=== PATIENT | male | born 1960 | race Hispanic/Latino ===

== ENCOUNTER 2024-06-28 14:21 | Emergency (ER) | payer MEDICARE, OTHER ==
[2024-06-28] MEDS ORDERED: MORPHINE 4 MG/ML SYR ONE (14:35)
[2024-06-28] MEDS ORDERED: ONDANSETRON 4 MG (ODT) TAB ONE (14:35)
--- NOTE | 2024-06-28 15:17 | RAD REPORT ---
EXAMINATION: Head C Spine Mpr Wo Con CLINICAL INDICATION: Male, 64 years old. TRAUMA TECHNIQUE: Axial CT images from the skull base to the vertex without intravenous contrast. Axial CT i mages through the cervical spine were obtained without intravenous contrast. Sagittal and coronal reformatted images were created from the data set. Coronal and sagittal reformatted images were creat ed from the data set. One or more of the following dose reduction techniques were used: Automated exposure control, adjustment of the mA and/or kV according to patient size, and/or iterative reconstr uction. Unless otherwise specified, incidental findings do not require dedicated imaging follow-up. [id number]. COMPARISON: 07/30/2015 FINDINGS: Head: INTRACRANIAL: No acute intracranial hemorrhage. No hydrocephalus. No mass effect or midline shift. Mi ld chronic small vessel ischemic changes. VASCULATURE: No visualized abnormalities in the arteries or dural venous sinuses. SCALP/SKULL: No calvarial fracture identified. No acute soft tissue abnormality. SINUSES: The visualized paranasal sinuses are mostly clear. No significant mastoid fluid. Cervical spine: ALIGNMENT: The cervical spine has normal alignment without scoliosis or spondylolisthesis. BONE: Vertebral body heights are maintained. No aggressive osseous lesions. DEGENERATIVE: Multilevel cervical spondylosis with evidence of bilateral neural foraminal narrowing. No high grade central spinal stenosis. Foraminal narrowing is most pronounced bilaterally at C3-4 and C4-5. SOFT TISSUE: No significant abnormalities in the soft tissue of the neck. The visualized lung apices are clear. Carotid artery calcifications IMPRESSION: No acute intracranial abnormality. No acute fracture or traumatic malalignment of the cervical spine.
--- NOTE | 2024-06-28 15:29 | RAD REPORT ---
EXAM: Chest Abd Pelvis Wo Con CLINICAL INDICATION: Male, 64 years old TRAUMA TECHNIQUE: CT chest, abdomen and pelvis was performed, without IV contrast, as per department protoco l. Axial, sagittal and coronal reconstructions were obtained. One or more of the following dose reduction techniques were used: Automated exposure control, adjustment of the mA and/or kV according to the patient size, and/or iterative reconstruction. Unless otherwise specified, incidental findings do not require dedicated imaging follow-up. [id number]. COMPARISON: No prior exam. FINDINGS: The lack of intravenous contrast limits the sensitivity of this exam for evaluation of solid visceral organs, vascular structures, and retroperitoneum. ---THORAX--- LOWER NECK AND CHEST WALL: Visualized thyroid gland and soft tissues are normal. LUNGS AND AIRWAYS: Airways are clear. No evidence of airspace or interstitial process.No dominant or clearly suspicious nodule identified. PLEURA: No pleural effusion. No pneumothorax. MEDIASTINUM AND LYMPH NODES: No mediastinal mass or fluid collection. Normal size mediastinal, hilar, and axillary lymph nodes. THORACIC AORTA: No thoracic aortic aneurysm. PULMONARY ARTERIES: Caliber is within normal limits. HEART: Mild cardiomegaly. Moderate coronary artery calcifications.No significant pericardial effusion . ---ABDOMEN/PELVIS--- UPPER GI: No significant abnormality. LIVER: Hepatic steatosis, but otherwise unremarkable. GALLBLADDER/BILE DUCTS: No biliary ductal dilatation.? PANCREAS: No mass, ductal dilation, or ty-pancreatic fluid. SPLEEN: Unremarkable. ADRENALS: High attenuation right adrenal nodule measuring 15 mm. 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 Recommend 1 year follow up adrenal washout CT. If stable for > 1 year, no further f/u imaging.These guidelines do not apply to patients younger than 18 years, patients with cancer, and pa tients with any clinical suspicion of a functioning adrenal lesion. Reference: JACR 2017 Oct; 14(8):1038-44, JCAT 2016 May-Jun; 40(2):194-200 KIDNEYS AND URETERS: No hydronephrosis.No suspicious renal mass.No renal calculi.No ureteral calculi. ABDOMINAL AORTA AND OTHER VESSELS: Normal caliber aorta and IVC. PERITONEUM: No abnormal free fluid. No free air. LYMPH NODES: No pathologic lymphadenopathy. ABDOMINAL WALL: Unremarkable SMALL BOWEL/COLON: Small bowel has normal course and caliber. No colonic wall thickening or pericolon ic inflammatory changes.Normal appendix. URINARY BLADDER: Underdistended but grossly unremarkable. REPRODUCTIVE ORGANS: No pathologic process. ---COMBINED--- MUSCULOSKELETAL: Multilevel degenerative changes in the spine. No acute fracture. ADDITIONAL FINDINGS: None. IMPRESSION: No evidence of significant trauma to the chest, abdomen, or pelvis. Indeterminate right adrenal nodule measuring 15 mm. Recommend 1 year follow up adrenal washout CT. O r adrenal protocol MRI. If stable for > 1 year, no further f/u imaging.
--- NOTE | 2024-06-28 15:36 | ER ---
Nurse's Notes [facility] Name: Lawrence Crawford Age: 64 yrs Sex: Male : 1960 Arrival Date: 06/28/2024 Time: 14:21 Bed 2 Private MD: Diagnosis: Fall on and from ladder, initial encounter Presentation: 06/28 14:28 Chief complaint: Patient states: Fell from 8 ft ladder. C/O pain to head and lower ld1 back. Not on blood thinners. Negative LOC. Coronavirus screen: At this time, the client does not indicate any symptoms associated with coronavirus-19. Ebola Screen: No symptoms or risks identified at this time. 14:28 Method Of Arrival: Ambulatory ld1 14:29 Initial Sepsis Screen: Does the patient meet any 2 criteria? No. Patient's initial ld1 sepsis screen is negative. Does the patient have a suspected source of infection? No. Patient's initial sepsis screen is negative. Risk Assessment: Do you want to hurt yourself or someone else? Patient reports no desire to harm self or others. Onset of symptoms was June 28, 2024. 14:29 Acuity: GIAN 2 ld1 Triage Assessment: 14:29 General: Appears in no apparent distress. comfortable, Behavior is calm, cooperative, ld1 appropriate for age. Pain: Complains of pain in face Pain does not radiate. Pain currently is 10 out of 10 on a pain scale. Quality of pain is described as throbbing, Pain began suddenly, Is continuous. EENT: No signs and/or symptoms were reported regarding the EENT system. Neuro: Level of Consciousness is awake, alert, obeys commands, Oriented to person, place, time, situation. Cardiovascular: Capillary refill < 3 seconds Patient's skin is warm and dry. Respiratory: Airway is patent Respiratory effort is even, unlabored. GI: Abdomen is round non-distended. : No signs and/or symptoms were reported regarding the genitourinary system. Derm: No signs and/or symptoms reported regarding the dermatologic system. Musculoskeletal: No signs and/or symptoms reported regarding the musculoskeletal system. Historical: - Allergies: 14: No Known Allergies; ld1 - Home Meds: 14: None [Active]; ld1 - PMHx: 14:29 None; ld1 - PSHx: 14:29 None; ld1 - Immunization history:: Adult Immunizations up to date. - Infectious Disease History:: Denies. - Social history:: Smoking status: Patient denies any tobacco usage or history of. Screenin:12 [facility] ED Fall Risk Assessment (Adult) History of falling in the last 3 months, bp including since admission Yes- single mechanical fall (1 pt) Confusion or Disorientation No (0 pts) Intoxicated or Sedated No (0 pts) Impaired Gait No (0 pts) Mobility Assist Device Used No (0 pt) Altered Elimination No (0 pt) Score/Fall Risk Level 0 - 2 = Low Risk Oriented to surroundings. Abuse screen: Denies threats or abuse. Denies injuries from another. Nutritional screening: No deficits noted. Tuberculosis screening: No symptoms or risk factors identified. Assessment: 14:41 Reassessment: No changes from previously documented assessment. Patient and/or family ll1 updated on plan of care and expected duration. Pain level reassessed. Patient is alert, oriented x 3, equal unlabored respirations, skin warm/dry/pink. 15:50 Reassessment: No changes from previously documented assessment. Patient and/or family ll1 updated on plan of care and expected duration. Pain level reassessed. Patient is alert, oriented x 3, equal unlabored respirations, skin warm/dry/pink. Patient states feeling better. Vital Signs: 14:28 BP 132 / 77; Pulse 96; Resp 18; Temp 98.1(O); Pulse Ox 99% on R/A; Weight 86.18 kg; ld1 Height 5 ft. 8 in. ; Pain 10/10; 14:41 BP 126 / 71; Pulse 93; Resp 18; Pulse Ox 95% on R/A; ll1 15:50 BP 130 / 76; Pulse 63; Resp 16; Pulse Ox 96% ; Pain 8/10; ll1 14:28 Body Mass Index 28.89 (86.18 kg, 172.72 cm) ld1 14:28 Pain Scale: Adult ld1 15:50 Pain Scale: Adult ll1 ED Course: 14:22 Patient arrived in ED. im 14:27 Franc[facility]sca [facility]argas [facility]. sb4 14:27 Lyle Orr MD is Attending Physician. sb4 14:27 Vinay Prieto, RN is Primary Nurse. bp 14:29 Triage completed. ld1 14:29 Arm band placed on right wrist. ld1 14:40 Provided Education on: ER procedures and process. ll1 15:09 CT Head C Spine In Process Unspecified. EDMS 15:09 CT Chest Abdomen Pelvis W/O Contrast In Process Unspecified. EDMS 15:12 Patient has correct armband on for positive identification. bp 15:50 No provider procedures requiring assistance completed. Patient did not have IV access ll1 during this emergency room visit. Administered Medications: 14:38 Drug: Ondansetron PO 4 mg PO once Route: PO; ll1 15:50 Follow up: Response: No adverse reaction ll1 14:40 Drug: morphine IM 4 mg IM once {Note: pain 10/10 RASS 0.} Route: IM; Site: right ll1 deltoid; 15:50 Follow up: Response: No adverse reaction; Pain is decreased; RASS: Alert and Calm (0) ll1 Medication: 15:51 VIS not applicable for this client. ll1 Outcome: 15:36 Discharge ordered by . sb4 15:50 Discharged to home ambulatory, ll1 15:50 Condition: stable 15:50 Discharge instructions given to patient, family, Instructed on discharge instructions, follow up and referral plans. no drinking with medication, no driving heavy equipment, medication usage, Demonstrated understanding of instructions, follow-up care, medications, Prescriptions given X 2, 15:51 Patient left the ED. ll1 Signatures: Dispatcher [employer] EDCO Vinay Prieto RN RN bp Lewis, Lynsay, RN RN 1 [employer] Eagle RN RN ld1 Franchesca Vargas PA-C PAShylaC 4 Jacqueline Lopez im
--- NOTE | 2024-06-28 15:36 | EDPHYS ---
Physician Documentation [facility] Name: Lawrence Crawford Age: 64 yrs Sex: Male : 1960 Arrival Date: 06/28/2024 Time: 14:21 Bed 2 Private MD: ED Physician Lyle Orr HPI: 06/28 16:51 This 64 yrs old Male presents to ER via Ambulatory with complaints of fall sb4 from 8ft, Head Injury-Adult. 16:51 Details of fall: The patient fell from a height, from a ladder, approximately 8 feet. sb4 Onset: The symptoms/episode began/occurred just prior to arrival. Associated injuries: The patient sustained injury to the head, pain, right low back. The patient has not experienced similar symptoms in the past. The patient has not recently seen a physician. was climbing on a ladder to his roof when he lost his footing and fell down. thinks he hit his head but is not sure. did not lose consciousness. is not on blood thinners. reports pain in right side of his head and right lower back. denies any dizziness, nausea, blurry vision. Historical: - Allergies: 14:29 No Known Allergies; ld1 - Home Meds: 14:29 None [Active]; ld1 - PMHx: 14:29 None; ld1 - PSHx: 14:29 None; ld1 - Immunization history:: Adult Immunizations up to date. - Infectious Disease History:: Denies. - Social history:: Smoking status: Patient denies any tobacco usage or history of. ROS: 16:53 Constitutional: Negative for fever, chills, and weight loss, sb4 16:53 MS/extremity: Positive for per HPI, 16:53 All other systems are negative, Exam: 16:53 Constitutional: This is a well developed, well nourished patient who is awake, alert, sb4 and in no acute distress. Head/Face: Normocephalic, atraumatic. Eyes: Extra-ocular motions intact. Periorbital areas with no swelling, redness, or edema. ENT: Mucous membranes moist. Cardiovascular: Regular rate and rhythm with a normal S1 and S2. Respiratory: No increased work of breathing, no retractions or nasal flaring. Abdomen/GI: Soft, non-tender, no distension. Skin: Warm, dry with normal turgor. Normal color with no rashes, no lesions, and no evidence of cellulitis. Neuro: Awake and alert, GCS 15, oriented to person, place, time, and situation. Motor strength 5/5 in all extremities. Sensory grossly intact. 16:53 Skin: no lacerations, bruising, erythema, or deformities noted. Vital Signs: 14:28 BP 132 / 77; Pulse 96; Resp 18; Temp 98.1(O); Pulse Ox 99% on R/A; Weight 86.18 kg; ld1 Height 5 ft. 8 in. ; Pain 10/10; 14:41 BP 126 / 71; Pulse 93; Resp 18; Pulse Ox 95% on R/A; ll1 15:50 BP 130 / 76; Pulse 63; Resp 16; Pulse Ox 96% ; Pain 8/10; ll1 14:28 Body Mass Index 28.89 (86.18 kg, 172.72 cm) ld1 14:28 Pain Scale: Adult ld1 15:50 Pain Scale: Adult ll1 MDM: 14:27 Medical Screening Exam initiated sb4 16:53 Differential diagnosis: closed head injury, contusion, fracture, multiple trauma, sb4 sprain, strain. Data reviewed: vital signs, nurses notes, radiologic studies, and as a result, I will discharge patient. Historians other than the Patient: Spouse/Significant Other: significant other. Counseling: I had a detailed discussion with the patient and/or guardian regarding the historical points, exam findings, and any diagnostic results supporting the discharge/admit diagnosis, radiology results, the need for outpatient follow up, for definitive care, to return to the emergency department if symptoms worsen or persist or if there are any questions or concerns that arise at home. 06/28 14:30 Order name: CT Head C Spine; Complete Time: 15:18 sb4 06/28 14:30 Order name: CT Chest Abdomen Pelvis W/O Contrast; Complete Time: 15:30 sb4 Administered Medications: 14:38 Drug: Ondansetron PO 4 mg PO once Route: PO; ll1 15:50 Follow up: Response: No adverse reaction ll1 14:40 Drug: morphine IM 4 mg IM once {Note: pain 10/10 RASS 0.} Route: IM; Site: right ll1 deltoid; 15:50 Follow up: Response: No adverse reaction; Pain is decreased; RASS: Alert and Calm (0) ll1 Disposition: 06/29 13:00 Co-signature as Attending Physician, Lyle Orr MD I agree with the assessment and jeremiah plan of care. Disposition Summary: 06/28/24 15:36 Discharge Ordered Notes: Location: Home sb4 Problem: new sb4 Symptoms: have improved sb4 Condition: Stable sb4 Diagnosis - Fall on and from ladder, initial encounter sb4 Followup: sb4 - With: Private Physician - When: 1 week - Reason: Recheck today's complaints, Re-evaluation by your physician Discharge Instructions: - Discharge Summary Sheet sb4 - Musculoskeletal Pain sb4 Forms: - Patient Portal Instructions sb4 - Leadership Thank You Letter sb4 Prescriptions: - Ibuprofen 800 mg Oral Tablet - take 1 tablet ORAL route every 8 hours As needed take with food; 30 tablet; sb4 Refills: 0, Product Selection Permitted - Cyclobenzaprine 10 mg Oral Tablet - take 1 tablet ORAL route every 8 hours As needed; 30 tablet; Refills: 0, sb4 Product Selection Permitted Signatures: Dispatcher [employer] Lyle Del Real MD MD cha Lewis, Lynsay, RN RN ll1 [employer], RN RN ld1 Franchesca Vargas, PA-C PA-C sb4 Corrections: (The following items were deleted from the chart) 06/28 14:31 14:31 Head C Spine MPR Wo Con+CT.RAD.BRZ ordered. EDAR EDAR
[2024-06-28 16:17] VITALS: TEMP 98.1
[2024-06-28 16:19] VITALS: BP 130/76; O2SAT 96
== END 2024-06-28 15:51 | disposition home or self-care (01) ==
LOC: ER 14:21
DX: R51.9 Headache, unspecified (principal); M54.50 Low back pain, unspecified; W11.XXXA Fall on and from ladder, initial encounter
CPT/HCPCS: 70450; 71250; 72125; 74176; Q0162; 96372; 99284